=== PATIENT | male | born 1985 | race Caucasian/White ===

== ENCOUNTER 2016-12-16 15:27 | Emergency (ER) | payer OTHER ==
[~2016-12-16] VITALS: Ht 180.3 cm; Wt 102.1 kg
[2016-12-16] MEDS ORDERED: IV NORMAL SALINE 1,000ML 1,000 ML IV ONE ×3 (16:00→16:45)
[2016-12-16] MEDS ORDERED: KETOROLAC 30 MG/ML VIAL. IV ONE (16:00)
[2016-12-16 16:04] LABS: BASO % 1 % (0-3); EOS % 0 % (0-3); HEMATOCRIT 41.6 % (39.0-53.0); HEMOGLOBIN 14.3 g/dL (13.0-17.5); LYMPH # 0.9 x10^3/uL (1.0-4.8); LYMPH % 11 % (24-48); MEAN CORPUSCULAR HEMOGLOBIN 30 pg (25-35); MEAN CORPUSCULAR HGB CONC 34 g/dL (31-37); MEAN CORPUSCULAR VOLUME 86 fL (79-100); MONO # 0.6 x10^3/uL (0.0-1.1); MONO % 7 % (0-9); NEUT # 6.7 x10^3uL (1.8-7.7); NEUT % 81 % (31-73); PLATELET COUNT 201 x10^3/uL (140-400); RED BLOOD COUNT 4.85 x10^6/uL (4.30-5.70); RED CELL DISTRIBUTION WIDTH 13.6 % (11.5-14.5); WHITE BLOOD COUNT 8.3 x10^3/uL (4.0-11.0)
[2016-12-16 16:19] LABS: ALBUMIN 3.9 g/dL (3.4-5.0); ALBUMIN/GLOBULIN RATIO 0.9 (1.0-1.7); C REACTIVE PROTEIN 116.6 mg/L (0-3.3); CALCIUM 8.9 mg/dL (8.5-10.1); CREATININE 1.5 mg/dL (0.7-1.3); GFR 54.2; POTASSIUM 3.8 mmol/L (3.5-5.1); TOTAL BILIRUBIN 0.3 mg/dL (0.2-1.0); TOTAL PROTEIN 8.2 g/dL (6.4-8.2)
--- NOTE | 2016-12-16 16:25 | RAD ---
Examination: Single frontal view the chest. History: History of shortness of breath Comparison: None available Findings: The cardiomediastinal silhouette grossly appears unremarkable. There is no acute infiltrate or visualized pneumothorax identified, Impression : no acute cardiopulmonary findings.
--- NOTE | 2016-12-16 17:16 | ED.ADGEN ---
Past History Past Medical History: No Pertinent History (JUWAN ESPINAL DO) Past Surgical History: No Surgical History (JUWAN ESPINAL DO) Alcohol Use: None Drug Use: None (JUWAN ESPINAL DO) Adult General Chief Complaint Chief Complaint Fever, headache, sore throat (JUWAN ESPINAL DO) HPI HPI Patient is a 31-year-old male seen at [facility] yesterday for fever, sore throat and headache. Patient described headache and sinus pressure. Patient was prescribed amoxicillin and was reevaluated in the clinic earlier this afternoon and noted to be tachycardic with a rate in the 140s and a fever off 102. Influenza was done which was negative.chest x-ray is reportedly negative. Denies neck stiffness, light sensitivity, nausea, rash, abdominal pain. No recent tick exposures or tick bites. No other acute symptoms or complaints. (JUWAN ESPINAL DO) Review of Systems Review of Systems Review symptoms as per history of present illness. All other review symptoms are negative. (JUWAN ESPINAL DO) Current Medications Current Medications Current Medications Medications (Trade) Dose Ordered Sig/Val Start Time Stop Time Status Last Admin Dose Admin Ceftriaxone Sodium 2 gm/ Sodium Chloride 100 ml @ 200 mls/hr 1X ONCE 12/16/16 18:00 12/16/16 18:30 DC 12/16/16 18:00 200 MLS/HR Ceftriaxone Sodium (Rocephin) 2 gm STK-MED ONCE 12/16/16 18:11 12/16/16 18:12 DC Ketorolac Tromethamine (Toradol) 30 mg 1X ONCE 12/16/16 16:00 12/16/16 16:44 DC 12/16/16 16:00 30 MG Sodium Chloride 100 ml @ As Directed STK-MED ONCE 12/16/16 18:10 12/16/16 18:11 DC (KORY NGUYEN DO) Allergies Allergies Allergies Coded Allergies Type Severity Reaction Last Updated Verified No Known Drug Allergies 12/16/16 No (KORY NGUYEN DO) Physical Exam Physical Exam Constitutional: Well developed, well nourished, no acute distress, non-toxic appearance. HENT: Normocephalic, frontal sinus tenderness to palpation, bilateral external ears normal, oropharynx, pharyngeal erythema no oral exudates, nose normal. Eyes: PERRL, Neck: Normal range of motion, supple, no midline tenderness, no meningismus. Cardiovascular: Tachycardic Lungs & Thorax: Bilateral breath sounds clear to auscultation. Abdomen: Bowel sounds normal, soft, no tenderness. Skin: Warm, dry, no erythema. Back: No tenderness, no CVA tenderness. Extremities: No tenderness. Neurologic: Alert and oriented X 3, normal motor function, normal sensory function, no focal deficits noted. Psychologic: Affect normal, judgement normal, mood normal. (JUWAN ESPINAL DO) Current Patient Data Vital Signs Vital Signs Date Time Temp Pulse Resp B/P (MAP) Pulse Ox O2 Delivery O2 Flow Rate FiO2 12/16/16 19:00 120 22 131/83 (99) 98 Room Air 12/16/16 16:14 99.8 (KORY NGUYEN DO) Lab Results Laboratory Tests Test 12/16/16 15:39 12/16/16 17:25 12/16/16 20:00 12/16/16 20:40 White Blood Count 8.3 x10^3/uL (4.0-11.0) Red Blood Count 4.85 x10^6/uL (4.30-5.70) Hemoglobin 14.3 g/dL (13.0-17.5) Hematocrit 41.6 % (39.0-53.0) Mean Corpuscular Volume 86 fL (79-100) Mean Corpuscular Hemoglobin 30 pg (25-35) Mean Corpuscular Hemoglobin Concent 34 g/dL (31-37) Red Cell Distribution Width 13.6 % (11.5-14.5) Platelet Count 201 x10^3/uL (140-400) Neutrophils (%) (Auto) 81 % (31-73) H Lymphocytes (%) (Auto) 11 % (24-48) L Monocytes (%) (Auto) 7 % (0-9) Eosinophils (%) (Auto) 0 % (0-3) Basophils (%) (Auto) 1 % (0-3) Neutrophils # (Auto) 6.7 x10^3uL (1.8-7.7) Lymphocytes # (Auto) 0.9 x10^3/uL (1.0-4.8) L Monocytes # (Auto) 0.6 x10^3/uL (0.0-1.1) Eosinophils # (Auto) 0.0 x10^3/uL (0.0-0.7) Basophils # (Auto) 0.0 x10^3/uL (0.0-0.2) Sodium Level 137 mmol/L (136-145) Potassium Level 3.8 mmol/L (3.5-5.1) Chloride Level 100 mmol/L (98-107) Carbon Dioxide Level 24 mmol/L (21-32) Anion Gap 13 (6-14) Blood Urea Nitrogen 11 mg/dL (8-26) Creatinine 1.5 mg/dL (0.7-1.3) H Estimated GFR (Cockcroft-Gault) 54.2 BUN/Creatinine Ratio 7 (6-20) Glucose Level 175 mg/dL (70-99) H Lactic Acid Level 1.8 mmol/L (0.4-2.0) Calcium Level 8.9 mg/dL (8.5-10.1) Total Bilirubin 0.3 mg/dL (0.2-1.0) Aspartate Amino Transferase (AST) 20 U/L (15-37) Alanine Aminotransferase (ALT) 42 U/L (16-63) Alkaline Phosphatase 65 U/L (46-116) Troponin I Quantitative < 0.017 ng/mL (0-0.055) C-Reactive Protein 116.6 mg/L (0-3.3) H [place]-Via-A-Type Natriuretic Peptide 11 pg/mL (0-124) Total Protein 8.2 g/dL (6.4-8.2) Albumin 3.9 g/dL (3.4-5.0) Albumin/Globulin Ratio 0.9 (1.0-1.7) L CSF Tube Number 3 CSF Volume 1.5 CSF Color Colorless CSF Clarity Clear CSF WBC 3 CSF RBC 0 CSF Mononuclear WBCs % 100 % CSF Glucose 96 mg/dL (37-70) H CSF Total Protein 48.5 mg/dL (15.0-45.0) H Group A Streptococcus Rapid Negative (NEGATIVE) Urine Collection Type Unknown Urine Color Yellow Urine Clarity Clear Urine pH 5.5 Urine Specific [place] 1.010 Urine Protein Neg (NEG-TRACE) Urine Glucose (UA) 100 mg/dL (NEG) Urine Ketones (Stick) Neg mg/dL (NEG) Urine Blood Neg (NEG) Urine Nitrite Neg (NEG) Urine Bilirubin Neg (NEG) Urine Urobilinogen Dipstick 0.2 mg/dL (0.2 mg/dL) Urine Leukocyte Esterase Neg (NEG) Urine RBC Rare /HPF (0-2) Urine WBC Occ /HPF (0-4) Urine Squamous Epithelial Cells None /LPF Urine Bacteria 0 /HPF (0-FEW) Urine Opiates Screen Neg (NEG) Urine Methadone Screen Neg (NEG) Urine Barbiturates Neg (NEG) Urine Phencyclidine Screen Neg (NEG) Urine Amphetamine/Methamphetamine Neg (NEG) Urine Benzodiazepines Screen Neg (NEG) Urine Cocaine Screen Neg (NEG) Urine Cannabinoids Screen Neg (NEG) Urine Ethyl Alcohol Neg (NEG) (KORY NGUYEN DO) EKG EKG [] (JUWAN ESPINAL DO) Radiology/Procedures Radiology/Procedures [Chest x-ray: No acute cardiopulmonary disease per radiology report CT head: NAD Lumbar PUNCTURE PROCEDURE NOTE Consent: Consent was obtained in writing. Patient verbalized understanding agreement with risks, vs benefits vs alternatives prior to procedure. Anaesthesia, 4 mL some 1% lidocaine without epinephrine. Performing physician: Dr. Juwan Espinal The patient was placed in a seated upright position with his back exposing boat toward the examiner. Patient was widely prepped and sterilely prepped and approximately 3-4 mL's of 1% lidocaine without epinephrine was cautiously injected into the L2-L3 interspace. After an adequate level of anesthesia was achieved, at 22-gauge, 3-1/2 inch Quincke needle was cautiously introduced to the dural space and second attempt. Approximately 4 mL of clear CSF was obtained for lab testing. the needle was then removed and a bandage was placed over the insertion site. The patient was instructed to lay supine upper and lower pending lab results. The patient tolerated the procedure well without complications. (JUWAN ESPINAL DO) Course & Med Decision Making Course & Med Decision Making Pertinent Labs and Imaging studies reviewed. (See chart for details) [Ears, headache, without discrete source of infection. Patient currently on antibiotics concern for possible masking of underlying infection. Basic labs, chest x-ray performed. LP results pending. Patient feels looks better with IV fluids, and Toradol, but remains tachycardic. Care endorsed to oncoming [facility] with disposition pending at 18:00. ] (JUWAN ESPINAL DO) Course & Med Decision Making Received report at 1800 shift change. Pt seen/examined chart reviewed. CXR unremarkable PATIENT: JARAD CASTELLANOS ACCOUNT: [id number] : 1985 LOCATION: ER AGE: 31 SEX: M EXAM STATUS: PRE ER ORD. PHYSICIAN: JUWAN ESPINAL DO REASON: SHETH, fever PROCEDURE: CT HEAD WO CONTRAST PROCEDURE CT head without contrast dated 12/16/2016. HISTORY Headache with fever started on Tuesday. TECHNIQUE Contiguous axial imaging of the head was performed from skull base to vertex. No contrast administered.Exposure: One or more of the following individualized dose reduction techniques were utilized for this exam: 1. Automated exposure control. 2. Adjustment of the mA and/or kV according to patient size. 3. Use of iterative reconstruction technique. COMPARISON 09/17/2004. FINDINGS Ventricles and sulci are stable. No midline shift or mass effect. Right lateral ventricle is larger compared to the left side, unchanged. Brain parenchyma is of normal attenuation. No hemorrhage or extra-axial collection. Posterior fossa and brainstem unremarkable. Visualized paranasal sinuses and mastoid air cells are clear. No acute calvarial abnormality. IMPRESSION No evidence of acute intracranial abnormality. Electronically signed by: Edward North (December 16, 2016 17:56:10) DICTATED AND SIGNED BY: EDWARD NORTH MD DATE: 12/16/16 8054 CC: FARSHAD BARCLAY MD; JUWAN ESPNIAL DO ~ CRP 116.6, Cr 1.5, lactic acid 1.8, strep neg, CSF glu 96, pro 48.5 Pt remained tachycardia despite > 2L NS IV. I discussed results and need for observation admission due to persistent tachycardia. 2119: Pt requests AMA d/c. I discussed risks/benefits of staying vs leaving at length and questions answered. Risks of leaving discussed potential worsening of symptoms, loss of quality of life, and . Pt is AOx3, exhibits UCAR capacity and signed out AMA by RN (KORY NGUYEN DO) Final Impression Final Impression [] Problems: (JUWAN ESPINAL DO) Dragon Disclaimer Dragon Disclaimer This electronic medical record was generated, in whole or in part, using a voice recognition dictation system. (JUWAN ESPINAL DO) Departure Time of Disposition: 21:21 (KORY NGUYEN DO) Disposition: 07 AGAINST MEDICAL ADVICE Diagnosis: Febrile Illness, Tachycardia Condition: GUARDED Patient Instructions: Discharge Against Medical Advice, Nonspecific Tachycardia Additional Instructions: As discussed you have chosen to leave AGAINST MEDICAL ADVICE. Observation admission has been offered/recommended to you, risks and benefits of leaving vs staying have been discussed with you and your questions answered. Possible risks of leaving include worsening of condition, loss of quality of life, and . You may return at any time. Discontinue decongestants and caffeine/stimulants. Aggressive hydration with gatorade, water. No work/school tomorrow. Rx: doxycycline. Follow up with Dr Barclay tomorrow for recheck. Return to ED as needed. JUWAN ESPINAL DO December 16, 2016 17:16 KORY NGUYEN DO December 16, 2016 21:24
--- NOTE | 2016-12-16 17:57 | RAD ---
PROCEDURE CT head without contrast dated 12/16/2016. HISTORY Headache with fever started on Tuesday. TECHNIQUE Contiguous axial imaging of the head was performed from skull base to vertex. No contrast administered.Exposure: One or more of the following individualized dose reduction techniques were utilized for this exam: 1. Automated exposure control. 2. Adjustment of the mA and/or kV according to patient size. 3. Use of iterative reconstruction technique. COMPARISON 09/17/2004. FINDINGS Ventricles and sulci are stable. No midline shift or mass effect. Right lateral ventricle is larger compared to the left side, unchanged. Brain parenchyma is of normal attenuation. No hemorrhage or extra-axial collection. Posterior fossa and brainstem unremarkable. Visualized paranasal sinuses and mastoid air cells are clear. No acute calvarial abnormality. IMPRESSION No evidence of acute intracranial abnormality. Electronically signed by: Edward North (December 16, 2016 17:56:10)
[2016-12-16] MEDS ORDERED: IV NORMAL SALINE 100ML 100 ML ONE (18:10)
[2016-12-16 18:16] LABS: CSF PROTEIN 48.5 mg/dL (15.0-45.0)
[2016-12-16 18:53] LABS: CSF CLARITY CLEAR; CSF COLOR COLORLESS
[2016-12-16 19:00] VITALS: BP 131/83
[2016-12-16 19:18] LABS: CSF RBC COUNT 0; CSF WBC COUNT 3
[2016-12-16 19:19] LABS: CSF MON % 100 %
[2016-12-16 21:21] LABS: BARBITURATES NEG (NEG); BENZODIAZEPINES NEG (NEG); CANNABINOIDS NEG (NEG); COCAINE NEG (NEG); METHADONE NEG (NEG); OPIATES NEG (NEG); PHENCYCLIDINE NEG (NEG)
[2016-12-16 21:22] LABS: AMPHETAMINE/METHAMPHETAMINE NEG (NEG)
[2016-12-16 21:25] LABS: BACTERIA,URINE 0 /HPF (0-FEW); BILIRUBIN,URINE NEG (NEG); CLARITY,URINE CLEAR; COLOR,URINE YELLOW; GLUCOSE,URINE 100 mg/dL (NEG); NITRITE,URINE NEG (NEG); RBC,URINE RARE /HPF (0-2); UROBILINOGEN,URINE 0.2 mg/dL (0.2 mg/dL); WBC,URINE OCC /HPF (0-4)
[2016-12-16] MEDS ORDERED: DOXY100T PO (21:27)
== END 2016-12-16 21:37 | disposition left against medical advice (07) ==
LOC: ER 15:27
DX: R50.9 Fever, unspecified (principal); R00.0 Tachycardia, unspecified; J02.9 Acute pharyngitis, unspecified; R51 Headache
CPT/HCPCS: 36415; 62270; 70450; 71010; 80053; 80305; 81001; 82945; 83605; 83880; 84157; 84484; 85027; 86140; 87040; 87070; 87880; 89051; 96361; 96374; 96375; 99285; J0696; J1885; G0481; J7030

== ENCOUNTER → 2021-03-10 | Outpatient (CLI) | payer OTHER ==
[~2021-03-10] MED LIST: DOXY100T PO
--- NOTE | 2021-03-10 09:08 | RAD ---
EXAM: RIGHT UPPER QUADRANT ULTRASOUND. HISTORY: Elevated liver enzymes. COMPARISON: None. FINDINGS: Sonographic evaluation of the right upper quadrant was performed. Hyperechogenicity of the hepatic parenchyma is consistent with diffuse hepatic steatosis. Small foci of fatty sparing are noted along the gallbladder fossa. The gallbladder is unremarkable without evidence of stones, wall thickening or pericholecystic fluid. There is no sonographic Garcia sign. The common duct measures 3 mm. The visualized portions of the head and body of the pancreas reveal no abnormality. The right kidney measures 10.0 cm. Cortical thickness and echogenicity are preserved. There is no hyd ronephrosis. The visualized portions of the abdominal aorta and inferior vena cava are grossly patent and normal i n caliber. IMPRESSION: 1. Diffuse hepatic steatosis. Electronically signed by: Jordan Cai MD (03/10/2021 9:06 AM) [id number]
== END ==
LOC: US 07:46
PROVIDERS: ATTEND Internal Medicine
DX: K76.0 Fatty (change of) liver, not elsewhere classified (principal); R74.8 Abnormal levels of other serum enzymes
CPT/HCPCS: 76705